=== PATIENT | male | born 1975 ===

== ENCOUNTER → 2017-02-21 | Outpatient (REF) ==
--- NOTE | 2017-02-21 15:24 | DI ---
EXAM: PA and lateral views of the chest HISTORY: Pre-employment screening COMPARISON: None available FINDINGS: No focal consolidation, pleural effusion or pneumothorax is identified. The cardiomediastinal silhouette is within normal limits. IMPRESSION: No acute cardiopulmonary findings.
== END ==
LOC: RAD 14:58
DX: Z02.1 Encounter for pre-employment examination (principal)